=== PATIENT | male | born 1955 | race Caucasian/White ===

== ENCOUNTER 2017-05-02 00:39 | Inpatient (IN) | payer MEDICARE, MEDICAID ==
[2017-05-02 01:56] VITALS: BP 138/75
[2017-05-02] MEDS ORDERED: Magnesium Hydroxide (MOM) 30 mL UDC PO PRN (01:59)
[2017-05-02] MEDS ORDERED: Maalox 30 mL Cup PO PRN (01:59)
[2017-05-02 13:38] LABS: A1C % 5.3 % (4.0-6.0)
--- NOTE | 2017-05-02 15:24 | History & Physical ---
ADMIT DATE: 05/02/2017 PATIENT'S IDENTIFICATION: A 61-year-old male. REQUESTING PHYSICIAN: Dr. Miguel Jensen and Dr. Pennington. CHIEF COMPLAINT: "I live in [place]." HISTORY OF PRESENT ILLNESS: A 61-year-old male who has a history of dementia and seizure disorder, presented to [facility] while he was walking on the street, agitated, and confused. The patient was seen by medical team as well as the psychiatrist and subsequently after being evaluated, the patient is now transferred to [facility]. I am evaluating this patient from a medical standpoint after I was advised by psychiatrist to do the medical management. When I was talking to him on further questioning, he thinks he lives in [place] and he has a very poor memory recollection. PAST MEDICAL HISTORY: Remarkable for: 1. Seizure disorder. 2. Questionable dementia. 3. Degenerative joint disease. 4. Psychotic disorder. MEDICATIONS AT HOME: Include the time that he was takin. Keppra. 2. Phenobarbital. 3. Aricept. 4. Thiamine. 5. Multivitamin. 6. Tegretol. ALLERGIES: The patient is allergic to medications. SOCIAL HISTORY: The patient lives according to him in [place], used to work as a contractor, does not smoke, does not drink, does not take alcohol. FAMILY MEDICAL HISTORY. According to the patient, the father had emphysema. REVIEW OF SYSTEMS: The patient denies any headache, blurred vision, double vision, dysphagia, odynophagia, runny nose, stuffy nose, fever, chills, cough, chest pain, shortness of breath, palpitation, dizziness, nausea, vomiting, diarrhea, dysuria, hematuria, hematochezia, or melena. No history of any seizure or syncopal episode. No weight loss, no weight gain. PHYSICAL EXAMINATION: GENERAL: The patient is alert, awake, sitting in the chair without any acute distress. VITAL SIGNS: Temperature 98, pulse is 89, respiratory rate is 20, blood pressure 138/75, O2 sat is 96%. HEENT: Mask like face noted. Normocephalic, atraumatic. Extraocular muscles are intact. Tongue was pink and coated. Poor dentition noted. Sclerae without any icterus. Lots of nasolabial fold noted. NECK: Supple, no JVD, no hepatojugular reflex. No lymphadenopathy, thyromegaly, or carotid bruit. HEART: Both heart sounds are regular. No S3, no S4, no murmur. CHEST: Lung equal in expansion, no wheezing, no crackles. ABDOMEN: Soft. No guarding, no rigidity. Liver and spleen not palpable. No palpable mass. EXTREMITIES: No edema, no cyanosis or clubbing. Peripheral pulses +2. No calf tenderness noted. NEUROLOGIC: The patient is alert, awake, but not oriented to time, place, person. The patient has a resting tremor become more pronounced upon intension. A 2-12 cranial nerves intact. Power in upper and lower extremities are 5+. Some degree of spasticity noted. The patient is able to walk, but had a broad-based gait, unable to do complete neuro and cerebellar sign examinations. AVAILABLE DIAGNOSTIC DATA: Performed at [facility] has been reviewed, which is remarkable for blood sugar of 206 along with slightly elevated MCV of 99. CLINICAL IMPRESSIONS: 1. Psychotic disorder exacerbation. 2. Possible underlying Parkinson disease. 3. Dementia, Alzheimer's versus Parkinson's related. 4. Degenerative joint disease. 5. Fall risk. 6. Seizure disorder. 7. Psychotic disorder. PLAN: The patient is admitted at this time to psychiatric unit. I will continue his seizure medication as the patient receiving. We will check Keppra level, Tegretol level, as well as phenobarbital level and see if we need to adjust the dose of his medication for now. The patient will be given low dose Sinemet and see if he has improvement in his symptoms. Psychotic evaluation and management has been deferred to psychiatrist. The patient will have Glucoscan a.c. and at bedtime and cover the blood sugar, sliding scale insulin, glycohemoglobin A1c will be done as well and we will continue to follow this patient during his stay at the hospital. I sincerely thank you, Dr. Miguel Jensen for giving me the opportunity to participate in patient of yours. JOB# [id number]
[2017-05-02] MEDS ORDERED: INSULIN ASPART SLIDING SCALE 100 UNITS/ML UNIT SUBQ SCH (16:30)
--- NOTE | 2017-05-02 20:57 | Psychosocial Evaluation ---
DATE OF SERVICE: 05/02/2017 JUSTIFICATION FOR HOSPITALIZATION: Aggressive behaviors, agitated behaviors, striking out at staff. HISTORY OF PRESENT ILLNESS: This is a 61-year-old male agitated, confused, rambling behaviors. When I asked him why he is here, he states "prant." I do not know what this means and this is not in fact a word. Staff noting he had been striking out and highly aggressive, violent behaviors, staring blankly on exam and a very poor historian. PAST PSYCHIATRIC HISTORY: Unable to assess fully. FAMILY HISTORY: Unable to assess fully. SOCIAL HISTORY: He states he lives and was born in [place]. Patient states he is . When I asked him where is his , he states "he notes that he has to be cared." No overt drugs, alcohol or tobacco. MEDICATIONS: Reviewed. MEDICAL HISTORY: Please see full H and P. MENTAL STATUS EXAMINATION: Stated age, staring blankly minimally interactive, rambling speech. Mood "prant." Affect flat. Thought processes were disengaged and disorganized. No overt SI or HI, but he appears quite psychotic. Poor insight and judgment. PROVISIONAL DIAGNOSES: Psychosis, unspecified; anxiety, unspecified. UNDER MEDICAL: Please see full H and P. ESTIMATED LENGTH OF STAY: 5-7 days. ASSESSMENT: The patient requiring inpatient hospitalization, confused, agitated, striking out behaviors and violent behaviors. PLAN: We will continue to monitor and make appropriate medication adjustments. The patient may benefit from psychotropic medications. We will attempt to increase collateral. CONDITIONS FOR DISCHARGE: Improved mood, improved affect, cessation of any SI or HI, better control of any psychotic and aggressive symptoms. [facility]# [id number]
[2017-05-02] MEDS ORDERED: PHENOBARBITAL 129.6 MG PO SCH (21:00)
--- NOTE | 2017-05-03 07:48 | Progress Notes ---
DATE: 05/03/2017 SUBJECTIVE: The patient is currently in the hospital, agitated, confused, rambling behaviors. Currently in the isolation room because he was unruly, agitated, tried to throw a chair. Staff essentially fearful about his acting out behaviors, aggressive behaviors, violent behaviors. Currently on Seroquel 25 mg b.i.d., Seroquel 25 mg at bedtime. The patient talking to himself, mumbling to self. ASSESSMENT: The patient remains symptomatic, agitated, unruly and aggressive. PLAN: We will continue to monitor. He may need emergency medications. We will increase Seroquel today. JOB# [id number]
[2017-05-03] MEDS ORDERED: Haloperidol Lactate 5 mg/mL 1mL Vial IM ONE (15:33)
--- NOTE | 2017-05-03 15:33 | General Progress Note ---
Subjective - Review of Systems Subjective: Patient is seen and examined. No new events. Objective - Results Recent Labs: Laboratory Last Values POC Glucose 115 MG/DL (70 - 105) H 05/02/17 12:30 Hemoglobin A1c % 5.3 % (4.0-6.0) 05/02/17 12:37 - Physical Exam Vitals and I&O: Vital Signs Temp 98.0 F 05/02/17 14:00 Pulse 87 05/02/17 14:00 Resp 20 05/02/17 20:00 BP 147/80 05/02/17 14:00 Pulse Ox 98 05/02/17 14:00 Intake & Output 05/02/17 05/03/17 05/03/17 18:59 06:59 18:59 Intake Total 960 120 Balance 960 120 Intake: Oral 960 120 Other: # Voids 4 2 # Bowel Movements 1 Active Medications: Current Medications Acetaminophen (Tylenol) 650 mg PO Q4HR PRN PRN Reason: Mild Pain / Temp above 100 Stop: 07/01/17 01:58 Al Hydrox/Mg Hydrox/Simethicone (Maalox) 30 ml PO Q4HR PRN PRN Reason: GI DISTRESS Stop: 07/01/17 01:58 Carbamazepine (Tegretol) 400 mg PO QID ANDREZ PRN Reason: Protocol Stop: 07/01/17 12:59 Last Admin: 05/03/17 13:14 Dose: 400 mg Carbidopa/Levodopa (Sinemet 10 Mg-100 Mg) 1 tab PO BID [facility] Stop: 07/02/17 16:59 Donepezil HCl (Aricept) 5 mg PO DAILY ANDREZ Stop: 07/02/17 08:59 Last Admin: 05/03/17 08:13 Dose: 5 mg Folic Acid (Folate) 1 mg PO DAILY ANDREZ Stop: 07/02/17 08:59 Last Admin: 05/03/17 08:16 Dose: 1 mg Levetiracetam (Keppra) 500 mg PO BID ANDREZ Stop: 07/01/17 16:59 Last Admin: 05/03/17 08:15 Dose: 500 mg Lorazepam (Ativan) 1 mg PO TID PRN; Protocol PRN Reason: Agitation Stop: 07/01/17 13:59 Last Admin: 05/03/17 15:14 Dose: 1 mg Magnesium Hydroxide (Milk Of Magnesia) 30 ml PO HS PRN PRN Reason: Constipation Phenobarbital (Phenobarbital) 129.6 mg PO HS ANDREZ Stop: 07/01/17 20:59 Last Admin: 05/02/17 20:35 Dose: 129.6 mg Quetiapine Fumarate (Seroquel) 25 mg PO BID ANDREZ PRN Reason: Protocol Stop: 07/01/17 16:59 Last Admin: 05/03/17 08:15 Dose: 25 mg Quetiapine Fumarate (Seroquel) 75 mg PO HS ANDREZ PRN Reason: Protocol Stop: 07/02/17 06:24 Thiamine HCl (Vitamin B1) 100 mg PO DAILY ANDREZ Stop: 07/02/17 08:59 Last Admin: 05/03/17 08:15 Dose: 100 mg Zolpidem Tartrate (Ambien) 5 mg PO HS PRN PRN Reason: Insomnia Stop: 07/01/17 01:58 Last Admin: 05/02/17 20:36 Dose: 5 mg General: Alert, Cooperative, No acute distress HEENT: Atraumatic, PERRLA, EOMI Neck: Supple, JVD Cardiovascular: Regular rate, Normal S1, Normal S2 Lungs: Clear to auscultation Abdomen: Bowel sounds, Soft Extremities: Other (No cyanosis,clubbing.) Assessment/Plan - Assessment Assessment: Possible Parkinson disease. Seizure. Alzheimer's dementia. DJD Fall risk. Psych disorder. - Plan Plan: Trial of sinemet. Seizure meds Seizure precautions. General Nursing care Psych meds Psych follow up. Continue current care. Discussed with staff.
[2017-05-03] MEDS: Carbidopa/Levodopa 10/100 mg Tab PO SCH (18:00)
[2017-05-04] MEDS: Carbidopa/Levodopa 10/100 mg Tab PO SCH ×2 (09:26→18:04)
[2017-05-04] MEDS ORDERED: Haloperidol Lactate 5 mg/mL 1mL Vial ONE (12:49)
[2017-05-04] MEDS ORDERED: Haloperidol Lactate 5 mg/mL 1mL Vial IM ONE (18:40)
--- NOTE | 2017-05-05 07:36 | Progress Notes ---
DATE: 05/04/2017 The patient is currently in the hospital, agitated, nonsensical, violent behaviors yesterday, and required emergency interventions. On [id number], he is refusing interview. Staff continues to be fearful about his acting out behaviors. He remained somewhat unruly, easily agitated, highly impulsive and unpredictable. MEDICATIONS: Reviewed. ASSESSMENT: The patient remains symptomatic. Ongoing safety concerns. Recent dose increase of medications just yesterday. PLAN: We will continue to monitor and follow up. The patient is refusing interview at this time. We will attempt to reassess in the morning. [facility]# [id number]
[2017-05-05] MEDS: Carbidopa/Levodopa 10/100 mg Tab PO SCH ×2 (13:01→16:44)
[2017-05-05] MEDS ORDERED: Haloperidol Lactate 5 mg/mL 1mL Vial IM ONE (20:00)
--- NOTE | 2017-05-06 06:47 | Progress Notes ---
DATE: 05/05/2017 SUBJECTIVE: The patient is seen today, 05/05/2017 in the hospital, agitated, violent and aggressive behaviors. Staff fearful about his acting out behaviors, disoriented on exam, denies any agitation and simply walks away during the interview. He seems internally preoccupied, mumbling to self. MEDICATIONS: Reviewed. ASSESSMENT: The patient remains symptomatic, ongoing safety concerns, concerns that he will act out, unruly behaviors, highly unpredictable. PLAN: We will continue to monitor and follow up. We will titrate and adjust medications. Continue Seroquel and I will be increasing his bedtime dose of Seroquel. JOB# [id number]
[2017-05-06] MEDS: Carbidopa/Levodopa 10/100 mg Tab PO SCH (08:30)
--- NOTE | 2017-05-06 21:59 | Discharge Summary ---
DATE OF DISCHARGE: 05/06/2017 FINAL DIAGNOSIS/PRIMARY DIAGNOSIS: Unspecified psychosis. SECONDARY DIAGNOSIS: Unspecified anxiety. REASON FOR HOSPITALIZATION: The patient was admitted to the hospital because of confusion, agitation, and rambling behavior. HOSPITAL COURSE: The patient continued to be agitated and rambling. Also, was in irritable mood. The patient was given a Haldol on an emergency basis upon admission. Also started on Seroquel in a dose of 100 mg in the morning and 200 mg at bedtime. Gradually, the patient's affect was brighter. The patient was less irritable and less agitated. Also, he was cooperative with his treatment. The patient was not suicidal or homicidal. The patient was discharged from the hospital after the patient's sister came and his daughter and insisted to take the patient out of the hospital against medical advice. Physical examination of the patient showed no major medical problem while in the hospital. AFTER DISCHARGE PLAN: The patient discharged from the hospital and the patient was given appointment to see me 05/13/2017 at 11:00 in [place] office and I met with the patient's daughter and discussed that with her and she agreed to do so. EXPECTED OUTCOME AFTER DISCHARGE: Guarded unless the patient will follow up with outpatient treatment. [facility]# [id number]
== END 2017-05-06 15:10 | disposition left against medical advice (07) | DRG 885 ==
LOC: GERO 00:39
PROVIDERS: ADMIT Psychiatry & Neurology Psychiatry; ATTEND Psychiatry & Neurology Psychiatry
DX: F29 Unspecified psychosis not due to a substance or known physiological condition (principal); F02.81 Dementia in other diseases classified elsewhere, unspecified severity, with behavioral disturbance; G20 Parkinson's disease; G30.9 Alzheimer's disease, unspecified; F41.9 Anxiety disorder, unspecified; M19.90 Unspecified osteoarthritis, unspecified site; G40.909 Epilepsy, unspecified, not intractable, without status epilepticus; Z79.899 Other long term (current) drug therapy; Z83.6 Family history of other diseases of the respiratory system
CPT/HCPCS: 36415-UA; 82948-90; 83036-90; 90899; G0410; J1200; J1630; J1815; J2060; Z7610